=== PATIENT | male | born 1980 | race Two or more races ===

== ENCOUNTER 2025-03-20 00:01 | Emergency (ER) | payer SELFPAY ==
[2025-03-20] VITALS (10 sets, daily range): BP systolic 107–155; BP diastolic 75–105; PULSE 84–108; RESP 14–20; TEMP 36.5–36.9; O2SAT 94–100; BMI 25.8
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
--- NOTE | 2025-03-20 00:27 | PC.NURSE ---
unable to draw blood pt refusing, gcs 15, Notified Provider.
--- NOTE | 2025-03-20 00:43 | PC.NURSE ---
Pt unsteady on feet, attempting to ambulate, does not obey commands
--- NOTE | 2025-03-20 00:45 | PC.NURSE ---
Pt attempting to ambulate, unsteady gait, etoh odor noted
[2025-03-20] MEDS: DIAZEPAM INJ 5 MG/ML VIAL 2 ML 10 MG IM (01:19)
[2025-03-20] MEDS: HALOPERIDOL LACT INJ 5 MG/ML VIAL 10 MG IM (01:21)
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
[2025-03-20 02:06] LABS: Basophils # (Auto) 0.1 Thou/mm3 (0.0-0.2); Basophils % (Auto) 0 % (0-2.5); Eosinophils # (Auto) 0.1 Thou/mm3 (0.0-0.5); Eosinophils % (Auto) 1 % (0-10); Hematocrit 43.4 % (41.0-53.0); Hemoglobin 14.8 g/dL (13.5-16.0); Immature Granulocytes Auto 0.07 Thou/mm3 (0.00-0.00); Lymphocytes # (Auto) 1.3 Thou/mm3 (1.0-4.8); Lymphocytes % (Auto) 9 % (10-50); Mean Corpuscular HGB Conc 34.1 g/dl (31.0-37.0); Mean Corpuscular Hemoglobin 30.5 pg (25.0-35.0); Mean Corpuscular Volume 90 fL (80-100); Monocytes # (Auto) 0.6 Thou/mm3 (0.0-0.8); Monocytes % (Auto) 4 % (0-12); Neutrophils # (Auto) 12.5 Thou/mm3 (1.8-7.7); Neutrophils % (Auto) 85 % (37-80); Nucleated Red Blood Cell # 0.00 Thou/mm3 (0.00-0.00); Nucleated Red Blood Cell % 0 /100 WBC (0); Platelet Count 366 Thou/mm3 (140-440); RDW Standard Deviation 38.8 fL (35.1-43.9); Red Blood Count 4.85 Miln/mm3 (4.50-5.90); White Blood Count 14.6 Thou/mm3 (3.8-10.6)
[2025-03-20] MEDS: ONDANSETRON INJ 2 MG/ML INJ 2 ML 4 MG IVP (02:22)
[2025-03-20 02:25] LABS: INR 1.0 (0.9-1.3); Partial Thromboplastin Time 27.7 Seconds (22.0-36.0); Prothrombin Time 10.9 Seconds (9.0-12.2)
[2025-03-20] MEDS: DIPHTH,PERTUSS(ACELL),TET VAC 0.5 ML SYR- ADULT IMi (02:25)
[2025-03-20] MEDS: THIAMINE INJ 100 MG in SODIUM CHLORIDE 0.9% 100 ML 202 MG IV (02:26)
[2025-03-20] MEDS: BACITRACIN OINT 1 GM PACKET TOP (02:27)
[2025-03-20] MEDS: SODIUM CHLORIDE 0.9% 1000 ML 1,000 ML 999 ML IV ×2 (02:34→03:52)
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
[2025-03-20 02:36] LABS: Acetaminophen < 2.0 mcg/mL (10.0-20.0); Alanine Aminotransferase 12 U/L (10-49); Albumin, Serum 4.2 gm/dL (3.5-5.0); Albumin/Globulin Ratio 1.9 (1.2-2.2); Alcohol, Blood Medical 327.1 mg/dL (0-10.0); Alkaline Phosphatase 100 U/L (46-116); Amylase 76 U/L (30-118); Anion Gap 13 (7-16); Aspartate Amino Transferase 34 U/L (0-34); BUN/Creatinine Ratio 7 Ratio (12-20); Bilirubin,Direct 0.2 mg/dL (0.0-0.3); Bilirubin,Total 0.4 mg/dL (0.3-1.2); Blood Urea Nitrogen < 5 mg/dL (9-23); Calcium 8.7 mg/dL (8.3-10.6); Calcium (Corrected) 8.7 mg/dL (8.5-10.1); Carbon Dioxide 22.2 mMol/L (20.0-31.0); Chloride 107 mMol/L (98-107); Creatinine (Component) 0.7 mg/dL (0.6-1.3); Estimated Creatinine Clearance 125.9 mL/min (>60); Globulin 2.2 gm/dL (2.3-3.5); Glucose 120 mg/dL (74-106); Lipase 62 U/L (12-53); Magnesium 1.8 mg/dL (1.6-2.6); Osmolality,Calculated 281 (275-295); Potassium 3.7 mMol/L (3.4-5.1); Salicylate < 3.0 mg/dL; Sodium 142 mMol/L (136-145); Total Protein 6.4 gm/dL (5.7-8.2); eGFR > 60 See Note
[2025-03-20] MEDS: KETOROLAC INJ 30 MG/ML VIAL IVP (02:36)
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
[2025-03-20] MEDS: ceFAZolin/D5W 2 GM IV 2 GM/100 ML BAG IV (02:40)
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
[2025-03-20 02:58] LABS: Collection Type, Urine Clean Catch; Squamous Epithelial Cell,Urine 0 /hpf (0-5); WBC,Urine 0 /hpf (0-5)
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
[2025-03-20 03:02] LABS: Bilirubin,Urine Negative (Negative); Blood,Urine Negative (Negative); Clarity,Urine Clear (Clear/Hazy); Color,Urine Colorless (Lt Yel-Yel); Culture Indicated,Urine Not Indicated; Glucose, Urine Negative (Negative); Ketones,Urine Negative (Negative); Leukocyte Esterase,Urine Negative (Negative); Nitrite,Urine Negative (Negative); PH,Urine 5.5 (5.0-7.0); Protein,Urine Negative (Neg - Trace); RBC,Urine 1 /hpf (0-3); Specific Gravity,Urine 1.005 (1.001-1.035); Urobilinogen,Urine Negative mg/dL (0.0-1.0)
[2025-03-20 03:22] LABS: Amphetamine/Methamp Scrn,U Positive (Negative); Barbiturate Screen,Urine Negative (Negative); Benzodiazepines Screen,Urine Negative (Negative); Benzoylecgonine Screen, Ur Negative (Negative); Fentanyl Screen,Urine Negative (Negative); Opiate Screen,Urine Negative (Negative); THC Screen,Urine Positive (Negative)
--- NOTE | 2025-03-20 08:47 | PC.NURSE ---
pt adamat that he needs to use the restroom. pt refused urinal. pt still noted to be drowsy and unsteady on his feet. pt taken to bathroom via wheelchair.
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
--- NOTE | 2025-03-20 09:21 | PC.CC ---
0921-ASW met with pt at bedside to provide community resources such as drug/alcohol rehab information, 8 and [facility] services. Pt was receptive but was in and out of sleep due to his high alcohol level, as it was reported by the ER provider. ER provider reported the pt was placed on a 1799 due to being combative and not allowing medical staff to treat pt. However, there was no concern of MH issues with the pt.
--- NOTE | 2025-03-20 10:12 | PC.NURSE ---
PT AWAKE AND MORE ALERT AT THIS TIME. PT STATES THAT HE WANTS TO GO HOME. DR PALOMARES INFORMED AND SPOKE WITH PT. WILL CONTACT PT'S MOTHER FOR RIDE HOME PER PT
--- NOTE | 2025-03-20 10:18 | PD.EDADDENDU ---
Emergency Room Addendum Addendum Narrative: 0600: Care assumed from Dr. Sanders, the previous shift emergency physician. Past medical, surgical, social and family history reviewed. Vitals and home medications reviewed. I will assume the care of the patient at this time, pending reassessment and final disposition. Please refer to the emergency department record for history and examination from initial visit.?The following addendum documentation note is intended to reflect any pending information, findings, or radiology results not included in the patient?s initial chart. 0845: RN reports patient is unsteady on his feet and taken to the restroom in a wheelchair. 0955: Patient is awake, alert, answering questions. States he does not recall much of what occurred last night. We reviewed todays results with patient and mother (via phone). Patients mother reports she will be picking the patient up.
== END 2025-03-20 10:45 | disposition home or self-care (01) ==
PROVIDERS: Emergency Provider Emergency Medicine; PCP Family Medicine
DX: S00.93XA Contusion of unspecified part of head, initial encounter (principal); T14.8XXA Other injury of unspecified body region, initial encounter; F10.129 Alcohol abuse with intoxication, unspecified; F15.129 Other stimulant abuse with intoxication, unspecified; Y90.8 Blood alcohol level of 240 mg/100 ml or more; Z23 Encounter for immunization; V00.848A Other accident with standing micro-mobility pedestrian conveyance, initial encounter
CPT/HCPCS: 36415; 70450; 70486; 71250; 72125; 72128; 72131; 74176; 80053; 80307; 80320; 80329; 81001; 82150; 82248; 83690; 83735; 85025; 85610; 85730; 90471; 90715; 96361; 96365; 96372; 96375; 99284; J0689; J1200; J1630; J1885; J2405; J3360; J3411; J7030; J7050; A9270; G0480